=== PATIENT | female | born 1995 | race Caucasian/White ===

== ENCOUNTER 2016-09-19 18:16 | Emergency (ER) | payer OTHER, SELFPAY ==
[2016-09-19 19:16] LABS: Bilirubin Negative (Negative); Blood, Urine Large (Negative); Clarity Clear (Clear); Glucose, Urine (Dipstick) Negative (Negative); Leukocyte Trace (Negative); Nitrite Negative (Negative); Protein, Urine (Dipstick) 100 mg/dL (Neg-Trace); pH, Urine 7.5 (5.0-9.0)
[2016-09-19 19:18] LABS: Bacteria/HPF Rare-Few HPF (None Seen); RBC/HPF 0-3 HPF (0-3); Squamous Epithelial 0-3 HPF (0-3); WBC/HPF None Seen HPF (0-3)
[2016-09-19 19:20] LABS: Pregnancy Test - Urine (BHCG) Negative (NEGATIVE); Pregu Control Background? CLEAR/WHITE (CLR/WHITE); Pregu Control Bar Appear? YES (CONTROL BAR)
[2016-09-19] MEDS ORDERED: Sulfameth/Trimethoprim DS 800-160mg TAB ONE (19:28)
[2016-09-19] MEDS ORDERED: Ondansetron ODT 4 MG TAB ONE (19:33)
== END 2016-09-19 19:40 | disposition home or self-care (01) ==
LOC: NAV ERS 18:16
DX: N39.0 Urinary tract infection, site not specified (principal)
CPT/HCPCS: 81003; 81015; 81025; 99284; Q0162

== ENCOUNTER 2016-10-07 13:20 | Emergency (ER) | payer SELFPAY ==
[2016-10-07] MEDS ORDERED: Ondansetron ODT 4 MG TAB ONE (13:35)
== END 2016-10-07 14:40 | disposition home or self-care (01) ==
LOC: NAV ERS 13:20
DX: B34.9 Viral infection, unspecified (principal)
CPT/HCPCS: 87081; 87430; 99283; Q0162